=== PATIENT | female | born 1985 ===

== ENCOUNTER 2025-03-30 | Outpatient (REF) | payer MEDICAID, SELFPAY ==
[2025-03-31 11:49] LABS: Bacterial Vaginosis PCR POSITIVE (Negative); Candida Group PCR DETECTED (Not Detect); Candida glab krusei PCR NOT DETECTED (Not Detect); Trichomonas vaginalis PCR NOT DETECTED (Not Detect)
[2025-03-31 12:18] LABS: CT PCR NOT DETECTED (Not Detect.); NG PCR NOT DETECTED (Not Detect.)
== END 2025-03-30 00:01 | disposition home or self-care (01) ==
LOC: HO.HHCLNP
PROVIDERS: Visit Provider Internal Medicine
DX: N93.8 Other specified abnormal uterine and vaginal bleeding (principal); R10.2 Pelvic and perineal pain
CPT/HCPCS: 81515; 87491; 87591

== ENCOUNTER 2025-04-06 08:52 | Outpatient (REF) | payer MEDICAID, OTHER, SELFPAY ==
--- NOTE | ~2025-04-06 | US_ITS ---
CLINICAL HISTORY: pelvic pain amenorrhea US pelvis transvaginal and transabdominal Comparison: None provided Findings: Transvaginal and transabdominal scanning performed. Anteverted uterus is 8.7 cm length. Normal myometrium. Endometrium 12 mm thickness. Right ovary 1.4 x 1.2 x 1.0 cm. Left ovary 2.7 x 2.1 x 2.0 cm. Normal morphology. 1.0 cm dominant follicle present Normal color Doppler of both ovaries. Small volume free fluid adjacent to both ovaries. No free fluid in the cul-de-sac. IMPRESSION: 1. Normal pelvic ultrasound 2. 12 mm thick endometrium, within normal limits for a premenopausal woman. This document has been electronically signed by: Miguel Angel Waters MD on 04/06/2025 22:21:51
--- OUTSIDE RECORDS SUMMARY | 2025-04-06 09:06 | XMS_ITS | Clinical Summary ---
Author Organization Formerly [facility] Address [address] [address] Phone Care Team Providers Care Business Process Representative Name Role Phone Pcp, Unknown Primary Care Provider Unavailabl e Allergies No known active allergies Encounters Date Type Department Care Team Description 01/08/2025 12:04 AM EDT - 01/08/2025 3:40 AM EDT Emergency [facility] [address] [place] [address] Gerald Hsieh, DO Discharge Disposition: Home or Self Care from Last 3 Months Social History Tobacco Use Types Packs/Day Years Used Date Smoking Tobacco: Never Assessed Education Answer Date Recorded Are you interested in more education? Not on kalpesh e 01/07/2025 Are you concerned about learning? Not on file 01/07/2025 No 01/07/2025 No 01/07/2025 Digital Access Answer Date Recorded No 01/07/2025 No 01/07/2025 Reliable internet access at home? Not on file 01/07/2025 Device with a working camera? Not on file Intimate Partner Violence Answer Date R ecorded Are you denied basic needs s uch as food, clothing, or medical care? No 01/07/2025 In the past 12 months have y ou been in a relationship with a person who hurts, threatens, or tries to control you? No 01/07/2025 Are you denied basic needs s uch as food, clothing, or medical care? No 01/07/2025 In the past 12 months have y ou been in a relationship with a person who hurts, threatens, or tries to control you? No 01/07/2025 Comments Unknown Sex and Gender Information Value Date Recorded Sex Assigned at Female 01/07/2025 9:22 PM EDT Legal Sex Female 8:50 PM EDT Gender Identity Female 01/07/2025 9:22 PM EDT Sexual Orientation Straight 01/07/2025 9: 22 PM EDT Last Filed Vital Signs Vital Sign Reading Time Taken Comments Blood Pressure 132/81 01/08/2025 3:27 AM EDT Pulse 90 01/08/2025 3:27 AM EDT Temperature 36.8 C (98.2 F) 01/08/2025 3:27 AM EDT Respiratory Rate 18 01/08/2025 3:27 AM EDT Oxygen Saturation 98% 01/08/2025 3:27 AM EDT Inhaled Oxygen Concentration - - Weight - - Height - - Body Mass Index - - Plan of Treatment Health Maintenance Due Date Last Done Comments Adult Td,Tdap Booster 1985 DEPRESSION SCREENING 1997 SMOKING Hx and SMOKELESS TOB ACCO SCREENING 1998 HEPATITIS C SCREENING 2003 HIV ONE-TIME SCREENING (18-6 5 YEARS) 2003 PAP SMEAR 2006 COVID-19 VACCINE (2023-2 5 season) 2024 HEPATITIS A VACCINES Aged Out No long er eligible based on patient's age to complete this topic HIB VACCINES Aged Out No longer eligi ble based on patient's age to complete this topic MENINGOCOCCAL VACCINES (ACWY) Aged Out No longer eligible based on patient's age to complete this topic MENINGOCOCCAL VACCINES (B) Aged Out N o longer eligible based on patient's age to complete this topic PNEUMOCOCCAL VACCINES (0-49 years) Aged Out No longer eligible based on patient's age to complete this topic Medical Devices Not on file Procedures Procedure Name Priority Date/Time Associated Diagnosis Comments URINE SEDIMENT STAT 01/08/2025 12:42 AM EDT URINALYSIS W/REFLEX URINE CULTURE STAT 01/08/2025 12:42 AM EDT URINE CULTURE Routine 01/08/2025 12:42 AM EDT LIPASE STAT 01/07/2025 9:29 PM EDT LFTS (HEPATIC PANEL) STAT 01/07/2025 9:29 PM EDT HCG, SERUM QUALITATIVE STAT 01/07/2025 9:29 PM EDT BASIC METABOLIC PANEL STAT 01/07/2025 9:29 PM EDT CBC AND DIFFERENTIAL STAT 01/07/2025 9:29 PM EDT from Last 3 Months Results * (ABNORMAL) Urinalysis w/reflex Urine Culture (01/08/2025 12:42 AM EDT) COLOR Yellow Yellow [facility] CLARITY Clear [facility] GLUCOSE Negative Negative [facility] BILI Negative Negative [facility] KETONES Negative Negative [facility] SPECIFIC GRAVITY 1.015 1.005 - 1.030 [facility] BLOOD 1+(A) Negative [facility] PH 6.0 5.0 - 8.0 [facility] Protein-UA Trace(A) Negative [facility] NITRITE Negative Negative [facility] Leukocyte esterase, ur 2+(A) Negative [facility] Urine (Urine) 01/08/2025 12: 42 AM EDT 01/08/2025 12:46 AM EDT us Gerald Hsieh DO URINE ORDERABLES Final Result [address] [address] * (ABNORMAL) Urine Culture (01/08/2025 12:42 AM EDT) Special Requests None Reflexed from [id number] 01/08/2025 1:18 AM EDT [facility] Urine Culture 10,000 to 100,000 colony forming units per mL MIXED JOVI (3 OR MORE COLONY TYPES) Culture indicates contamination . Please resubmit if necessary.(A) 01/09/2025 9:05 AM EDT [facility] Urine 01/08/2025 12:4 2 AM EDT 01/08/2025 12:46 AM EDT us Gerald Hsieh DO MICROBIOLOGY - GENERAL ORDERA BLES Final Result Performing Organization Address [facility] de Phone Number [address] [address] * (ABNORMAL) Urine sediment (01/08/2025 12:42 AM EDT) WBC 21-49(A) NONE SEEN /hpf [facility] RBC 3-5(A) NONE SEEN /hpf [facility] URINE EPITHELIAL 0-4(A) NONE SEEN [facility] MUCUS Trace(A) NONE SEEN /hpf [facility] BACTERIA Trace(A) NONE SEEN /hpf [facility] 01/08/2025 12:4 2 AM EDT 01/08/2025 12:46 AM EDT us Gerald Hsieh DO URINE ORDERABLES Final Result Performing Organization Address [facility] de Phone Number [address] [address] * HCG, serum qualitative (01/07/2025 9:29 PM EDT) Pathologist [facility] HCG, QUALITATIVE Negative Negative IU/L [facility] Blood 01/07/2025 9:29 PM EDT 01/07/2025 9:30 PM EDT us Gerald Hsieh DO LAB BLOOD ORDERABLES Final Re sult Performing Organization Address [facility] Co de Phone Number [address] [address] * (ABNORMAL) LFTs (hepatic panel) (01/07/2025 9:29 PM EDT) ALKALINE PHOSPHATASE 104 39 - 117 U/L [facility] TOTAL BILIRUBIN <0.2 0.0 - 1.2 mg/dL [facility] DIRECT BILIRUBIN <0.1 0.0 - 0.2 mg/dL [facility] Bilirubin (Indirect) NOT CALCULATED 0 - 1.5 mg/dL [facility] AST 57(H) 0 - 37 U/L [facility] ALT 48(H) 0 - 40 U/L [facility] TOTAL PROTEIN 7.6 6.5 - 8.0 g/dL [facility] ALBUMIN 4.3 3.9 - 4.8 g/dL [facility] GLOBULIN 3.3 1 - 4.8 g/dL [facility] A/G Ratio 1.30 1.00 - 4.80 RATIO [facility] Blood 01/07/2025 9:29 PM EDT 01/07/2025 9:30 PM EDT us Gerald Hsieh DO LAB BLOOD ORDERABLES Final Re sult [facility] [address] [place] [address] * (ABNORMAL) CBC and differential (01/07/2025 9:29 PM EDT) WBC 4.72 4.00 - 11.00 K/uL [facility] RBC 4.47 4.00 - 5.20 M/uL [facility] HGB 11.9(L) 12.0 - 16.0 g/dL [facility] HCT 36.9 36.0 - 46.0 % [facility] PLT 217 150 - 450 K/uL [facility] MCV 82.6 80.0 - 100.0 fL [facility] MCH 26.6(L) 27.0 - 31.0 pg [facility] MCHC 32.2 32.0 - 36.0 g/dL [facility] RDW 13.2 11.5 - 14.5 % [facility] MPV 11.2 8.4 - 12.0 fL [facility] NRBC 0.00 0.00 /100 WBCs [facility] ABSOLUTE NRBC 0.00 0.00 K/uL [facility] DIFF METHOD Auto [facility] NEUTS 67.2 48.0 - 76.0 % [facility] LYMPHS 21.2 18.0 - 41.0 % [facility] MONOS 8.9 4.0 - 11.0 % [facility] EOS 2.3 0.0 - 5.0 % [facility] BASOS 0.2 0.0 - 1.5 % [facility] Granulocytes, immature (%) 0.2 0.0 - 0.9 % [facility] ABSOLUTE NEUTS 3.17 1.92 - 7.60 K/uL [facility] ABSOLUTE LYMPHS 1.00 0.72 - 4.10 K/uL [facility] ABSOLUTE MONOS 0.42 0.16 - 1.10 K/uL [facility] ABSOLUTE EOS 0.11 0.00 - 0.50 K/uL [facility] ABSOLUTE BASOS 0.01 0.00 - 0.15 K/uL [facility] Granulocytes, immature 0.01 0.00 - 0.09 K/uL [facility] Blood 01/07/2025 9:29 PM EDT 01/07/2025 9:30 PM EDT us [facility] LAB BLOOD ORDERABLES Final Re sult Performing Organization Address City/[facility]/ZIP Co de Phone Number [address] [address] * Lipase (01/07/2025 9:29 PM EDT) Pathologist [facility] LIPASE 32 16 - 63 U/L [facility] Blood 01/07/2025 9:29 PM EDT 01/07/2025 9:30 PM EDT us Gerald [facility] LAB BLOOD ORDERABLES Final Re sult Performing Organization Address [facility]/ZIP Co de Phone Number [address] [address] * (ABNORMAL) Basic metabolic panel (01/07/2025 9:29 PM EDT) SODIUM 137 133 - 146 mmol/L [facility] CHLORIDE 104 96 - 108 mmol/L [facility] POTASSIUM 3.8 3.3 - 5.1 mmol/L [facility] CO2 22 21 - 35 mmol/L [facility] BUN 10 6 - 19 mg/dL [facility] CREATININE 0.50 0.5 - 1.5 mg/dL [facility] GLUCOSE 115(H) 70 - 99 mg/dL [facility] CALCIUM 8.9 8.4 - 10.3 mg/dL [facility] EGFR >120 >59 mL/min/1.7 3m2 [facility] Comment:Estimated glomerular filtration rate calculated using the CKD-EPI refit equation. ANION GAP 15 10 - 20 mmol/L [facility] Blood 01/07/2025 9:29 PM EDT 01/07/2025 9:30 PM EDT us Gerald Hsieh DO LAB BLOOD ORDERABLES Final Re sult [facility] [address] [place] [address] from Last 3 Months Insurance [facility] Member Subscriber Plan / Payer (Ef fective 2025-) Name:Rubi King Relation to Subscriber:Self Name:Agustín Kingma Payer ID:[id number] Group ID:Not on file Type:Medicaid Address: [address] [employer] [place] [address] LIMITED NET FULL [facility] [employer] [facility] [place] [address] LIMITED [facility] FULL [facility] FULL Care Teams Business Process Representative Relationship Specialty Start Date End Date Pcp, Unknown PCP - General 01/07/25 Additional Source Comments The information contained in this document represents components of the legal health record. It is not the complete legal health record.[facility]ly [facility]
[2025-04-06 12:02] LABS: MANUAL DIFF FLAG NO
[2025-04-06 12:06] LABS: Hematocrit 38.5 % (37.0-47.0); Hemoglobin 12.4 g/dl (12.0-16.0); Imm Gran Abs Auto 0.01 X10*3/uL (0.00-0.03); Imm Gran Pct Auto 0.3 % (0.0-0.4); Lymphocytes Absolute Auto 1.0 X10*3/uL (1.2-4.9); Mean Corpuscular HGB Conc 32.2 g/dl (31.0-35.0); Mean Corpuscular Hemoglobin 26.4 pg (27.0-33.0); Mean Corpuscular Volume 82.1 fL (80.0-98.0); NRBC Abs Auto 0.000 X10*3/uL (0.0-0.012); NRBC Pct Auto 0.0 /100WBC (0.0-0.2); Platelet Count 207 X10*3/uL (160-400); Red Blood Count 4.69 X10*6/uL (4.20-5.50); White Blood Count 4.0 X10*3/uL (4.8-10.8)
[2025-04-06 13:01] LABS: Alanine Aminotransferase 32 U/L (0-31); Albumin Level 4.3 g/dL (3.5-5.0); Alkaline Phosphatase 63 U/L (39-117); Anion Gap 9 (12-20); Aspartate Amino Transferase 39 U/L (5-31); Blood Urea Nitrogen 11 mg/dL (9-16); Calcium 8.6 mg/dL (8.4-10.2); Carbon Dioxide 25 mmol/L (22-29); Chloride 109 mmol/L (96-108); Cholesterol 133 mg/dL (<200); Estimated Glomerular Filt Rate > 60; HDL Cholesterol 40 mg/dL (>40); Potassium 3.7 mmol/L (3.3-5.1); Sodium 139 mmol/L (135-145); Total Protein 7.3 g/dL (6.5-8.0); Triglycerides 81 mg/dL (<150)
[2025-04-06 13:02] LABS: Syphilis Screen Nonreactive (Nonreactive)
[2025-04-06 14:03] LABS: HBS Num1 0.17 mIU/mL (0-7.99); HBc Num1 0.05 S/CO (0.00-0.79); HBsAGNum1 0.32 S/CO (0.00-0.99); HIV Num 1 0.05 S/CO (0.00-0.99); Hepatitis A Antibody IgM 0.24 Index (0-0.79); Hepatitis B Surface Antigen Negative (Negative); ~HepC Num1 0.12 S/CO (0.00-0.79); ~Hepatitis A Antibody IgM Nonreactive (Nonreactive); ~Hepatitis B Surface Antibody NONREACTIVE (Nonreactive); ~Hepatitis C Antibody Nonreactive (Nonreactive)
[2025-04-06 14:47] LABS: Reflex LDLD? No
[2025-04-09 13:33] LABS: TS Negative Control Passed; TS Panel A 2; TS Panel B 0; TS Positive Control Passed; TSpotTB Negative (Negative)
== END 2025-04-06 08:53 | disposition home or self-care (01) ==
LOC: HO.US 08:52
PROVIDERS: PCP Internal Medicine; Visit Provider Internal Medicine
DX: R10.2 Pelvic and perineal pain (principal); N93.8 Other specified abnormal uterine and vaginal bleeding; Z11.1 Encounter for screening for respiratory tuberculosis; Z11.59 Encounter for screening for other viral diseases; Z01.84 Encounter for antibody response examination; Z11.4 Encounter for screening for human immunodeficiency virus [HIV]; Z11.3 Encounter for screening for infections with a predominantly sexual mode of transmission; F43.10 Post-traumatic stress disorder, unspecified; E66.811 Obesity, class 1; Z68.31 Body mass index [BMI] 31.0-31.9, adult; T74.91XA Unspecified adult maltreatment, confirmed, initial encounter
CPT/HCPCS: 36415; 76830; 76856; 80053; 80061; 85025; 86481; 86704; 86706; 86709; 86780; 86803; 87340; 87389

== ENCOUNTER → 2025-04-06 11:32 | Outpatient (BNV) | payer SELFPAY | PROVIDERS: PCP Internal Medicine; Visit Provider Radiology Diagnostic Radiology | DX: N91.0 Primary amenorrhea (principal); R10.2 Pelvic and perineal pain | CPT/HCPCS: 76830; 76856 ==